=== PATIENT | female | born 1980 | race Caucasian/White ===

== ENCOUNTER 2023-07-25 15:05 | Emergency (ER) | payer OTHER ==
[~2023-07-25] VITALS: Ht 165.1 cm; Wt 86.4 kg
[2023-07-25 15:09] VITALS: TEMP 97.6
[2023-07-25] MEDS: OxyCODONE HCL 5 MG IR TABLET PO ONE (16:05)
[2023-07-25] MEDS: BACITRACIN 0.9 GM PACKET OINTMENT TP ONE (16:05)
[2023-07-25] MEDS ORDERED: OXYC5 PO (16:42)
[2023-07-25] MEDS ORDERED: CEPH-558 PO (16:42)
[2023-07-25] MEDS ORDERED: IBUP-1492 PO (16:42)
[2023-07-25] MEDS: CEPHALEXIN MONOHYDRATE 500 MG CAPSULE PO ONE (16:45)
[2023-07-25 16:47] VITALS: BP 155/95; PULSE 80; RESP 20
== END 2023-07-25 18:36 | disposition home or self-care (01) ==
LOC: EMS 15:12
DX: S82.851A Displaced trimalleolar fracture of right lower leg, initial encounter for closed fracture (principal); F15.90 Other stimulant use, unspecified, uncomplicated; V00.131A Fall from skateboard, initial encounter; Y93.89 Activity, other specified; Y92.89 Other specified places as the place of occurrence of the external cause; Y99.8 Other external cause status
CPT/HCPCS: 27818; 99284; 73610-TC; Z7502; Z7610